=== PATIENT | male | born 1970 | race Caucasian/White ===

== ENCOUNTER 2023-02-06 15:04 | Emergency (ER) | payer BC ==
[~2023-02-06] VITALS: Ht 172.7 cm; Wt 103.9 kg
[2023-02-06 15:05] VITALS: BP_SYST 129
[2023-02-06] MEDS ORDERED: METH-634 PO (17:40)
[2023-02-06] MEDS ORDERED: LIDO1ADH22 TP (17:40)
[2023-02-06] MEDS ORDERED: ACET-2634 PO (17:40)
[2023-02-06] MEDS ORDERED: NAPR-1172 PO (17:40)
[2023-02-06] MEDS ORDERED: ACETAMINOPHEN 500 MG TABLET PO ONE (17:45)
[2023-02-06] MEDS ORDERED: methocarbamoL 500 MG TABLET PO ONE (17:45)
[2023-02-06] MEDS ORDERED: KETOROLAC TROMETHAMINE 30 MG VIAL IM ONE (17:45)
[2023-02-06] MEDS ORDERED: LIDOCAINE PATCH 5% 1 EA TP ONE (17:45)
[2023-02-06 18:08] VITALS: BP_SYST 128
== END 2023-02-06 18:08 | disposition home or self-care (01) ==
LOC: SED 15:04
DX: S16.1XXA Strain of muscle, fascia and tendon at neck level, initial encounter (principal); S00.03XA Contusion of scalp, initial encounter; S20.212A Contusion of left front wall of thorax, initial encounter; M25.512 Pain in left shoulder; E11.9 Type 2 diabetes mellitus without complications; Z88.6 Allergy status to analgesic agent; Z79.899 Other long term (current) drug therapy; W11.XXXA Fall on and from ladder, initial encounter; Y93.89 Activity, other specified; Y92.89 Other specified places as the place of occurrence of the external cause; Y99.8 Other external cause status
CPT/HCPCS: 70450-TC; 71046-TC; 71100; 72125-TC; 73030; 76376; 99284